=== PATIENT | female | born 1980 | race Caucasian/White ===

== ENCOUNTER 2018-11-15 19:03 | Emergency (ER) | payer SELFPAY ==
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
[2018-11-15] MEDS ORDERED: DEXAMETHASONE SOD PHOSPHATE 10MG/ML VIAL PO ONE (21:04)
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
== END 2018-11-15 21:11 | disposition home or self-care (01) ==
LOC: ER 19:03
DX: S60.222A Contusion of left hand, initial encounter (principal); M25.511 Pain in right shoulder; R51 Headache; R11.0 Nausea; V89.2XXA Person injured in unspecified motor-vehicle accident, traffic, initial encounter; W22.11XA Striking against or struck by driver side automobile airbag, initial encounter; Y92.410 Unspecified street and highway as the place of occurrence of the external cause
CPT/HCPCS: 99283; 99284; 73130; 73030; 70450; J1100